=== PATIENT | male | born 1930 | race Caucasian/White ===

== ENCOUNTER 2019-04-25 18:29 | Emergency (ER) | payer OTHER ==
--- OUTSIDE RECORDS SUMMARY | 2019-04-25 18:33 | XMS REPORT ---
:1930 [facility] Address [address] [place] [address] Dr. Sanchez [address] [place] [id number] Care Team Providers Name Role Phone Unavailable Unavailable Unavailable Problems This patient has no known problems. Allergies, Adverse Reactions, Alerts This patient has no known allergies or adverse reactions. Medications This patient has no known medications. Encounters Start End Encounter Admission Attending Care Care Encounter Date/Time Date/Time Type Type Clinicians Facility Department ID 2019-03-18 2019-03-18 Outpatient [facility] [id number] 11:54:00 11:54:00 2019-03-04 2019-03-04 Outpatient [facility] [id number] 09:27:00 09:27:00
--- NOTE | 2019-04-25 19:28 | EDPHYS ---
Physician Documentation [facility] Name: Richi Murphy Age: 89 yrs Sex: Male : 1930 Arrival Date: 04/25/2019 Time: 18:32 Bed 18 Private MD: ED Physician Khadar Pickard HPI: 04/25 19:22 This 89 yrs old Male presents to ER via Ambulatory with complaints of pm1 Abnormal Lab Results. 19:22 Presenting to the ER with complaints of elevated INR. Patient had his lab work drawn pm1 today and was contacted by his GI MD to report to the ER if he is unable to contact his business development specialist for further management today. Patient was recently diagnosed with autoimmune liver problem and started on prednisone 20 mg PO daily. patient also started taking TUMS daily for the calcium. Patient is having lab work drawn every for one month. Today was his second lab draw. Patient without any complaints. No chest pain, shortness of breath, or signs of any bleeding. 19:22 No hematuria. No dark or tarry stool. pm1 Historical: - Allergies: 18:57 Aspirin; ph 18:57 PENICILLINS; ph 18:57 Ibuprofen; ph 18:57 Tetanus Vaccines \\T\\ Toxoid; ph - Home Meds: 18:57 Coumadin Oral [Active]; Prednisone Oral [Active]; levothyroxine oral [Active]; ph - PMHx: 18:57 Atrial Fib; Hypothyroidism; "liver problems - autoimmune"; ph - PSHx: 18:57 Thyroidectomy; ph - Immunization history:: Adult Immunizations unknown. - Social history:: Smoking status: Patient/guardian denies using tobacco. - Ebola Screening: : Patient negative for fever greater than or equal to 101.5 degrees Fahrenheit, and additional compatible Ebola Virus Disease symptoms Patient denies exposure to infectious person. ROS: 19:22 Constitutional: Negative for fever, chills, and weight loss, Eyes: Negative for injury, pm1 pain, redness, and discharge, ENT: Negative for injury, pain, and discharge, Neck: Negative for injury, pain, and swelling, Cardiovascular: Negative for chest pain, palpitations, and edema, Respiratory: Negative for shortness of breath, cough, wheezing, and pleuritic chest pain, Abdomen/GI: Negative for abdominal pain, nausea, vomiting, diarrhea, and constipation, Back: Negative for injury and pain, : Negative for injury, bleeding, discharge, and swelling, MS/Extremity: Negative for injury and deformity, Skin: Negative for injury, rash, and discoloration, Neuro: Negative for headache, weakness, numbness, tingling, and seizure. Exam: 19:22 Constitutional: This is a well developed, well nourished patient who is awake, alert, pm1 and in no acute distress. Head/Face: Normocephalic, atraumatic. Eyes: Pupils equal round and reactive to light, extra-ocular motions intact. Lids and lashes normal. Conjunctiva and sclera are non-icteric and not injected. Cornea within normal limits. Periorbital areas with no swelling, redness, or edema. ENT: Nares patent. No nasal discharge, no septal abnormalities noted. Tympanic membranes are normal and external auditory canals are clear. Oropharynx with no redness, swelling, or masses, exudates, or evidence of obstruction, uvula midline. Mucous membranes moist. Neck: Trachea midline, no thyromegaly or masses palpated, and no cervical lymphadenopathy. Supple, full range of motion without nuchal rigidity, or vertebral point tenderness. No Meningismus. Chest/axilla: Normal chest wall appearance and motion. Nontender with no deformity. No lesions are appreciated. Cardiovascular: Regular rate and rhythm with a normal S1 and S2. No gallops, murmurs, or rubs. Normal PMI, no JVD. No pulse deficits. Respiratory: Lungs have equal breath sounds bilaterally, clear to auscultation and percussion. No rales, rhonchi or wheezes noted. No increased work of breathing, no retractions or nasal flaring. Abdomen/GI: Soft, non-tender, with normal bowel sounds. No distension or tympany. No guarding or rebound. No evidence of tenderness throughout. Back: No spinal tenderness. No costovertebral tenderness. Full range of motion. Skin: Warm, dry with normal turgor. Normal color with no rashes, no lesions, and no evidence of cellulitis. MS/ Extremity: Pulses equal, no cyanosis. Neurovascular intact. Full, normal range of motion. 19:22 Neuro: Orientation: is normal, Motor: is normal, moves all fours, Gait: is steady, at a normal pace, without difficulty. Vital Signs: 18:57 BP 137 / 84; Pulse 66; Resp 18; Temp 98.2; Pulse Ox 99% on R/A; Weight 62.14 kg; Height ph 5 ft. 9 in. (175.26 cm); Pain 0/10; 18:57 Body Mass Index 20.23 (62.14 kg, 175.26 cm) ph MDM: 18:44 Patient medically screened. pm1 19:15 ED course: Reviewed labs drawn today in [facility]. Discussed case with attending MD. pm1 Instructed the patient to hold his Coumadin which he takes in the AM and to contact his business development specialist tomorrow for further management. Patient without any signs of bleeding, pain, shortness of breath, headache. 19:22 Data reviewed: vital signs. Data interpreted: Pulse oximetry: on room air is 99 %. pm1 Interpretation: normal. Counseling: I had a detailed discussion with the patient and/or guardian regarding: the historical points, exam findings, and any diagnostic results supporting the discharge/admit diagnosis, lab results, the need for outpatient follow up, a business development specialist, management of INR and coumadin, to return to the emergency department if symptoms worsen or persist or if there are any questions or concerns that arise at home. Administered Medications: No medications were administered Disposition: 04/26 07:33 Co-signature as Attending Physician, Khadar Pickard MD I agree with the assessment and kdr plan of care. Disposition: 04/25/19 19:27 Discharged to Home. Impression: Abnormal coagulation profile - Supratherapeutic INR without bleeding. - Condition is Stable. - Discharge Instructions: Warfarin Coagulopathy. - Medication Reconciliation Form, Thank You Letter, Antibiotic Education, Prescription Opioid Use form. - Follow up: Emergency Department; When: As needed; Reason: Worsening of condition. Follow up: Private Physician; When: 2 - 3 days; Reason: Recheck today's complaints, Continuance of care, Re-evaluation by your physician. - Problem is new. - Symptoms have improved. Signatures: Khadar Pickard MD MD [facility] Cordelia Galloway RN RN ph Vernon Harris, MANAGER TALENT ACQUISITION MANAGER TALENT ACQUISITION pm1 Brian Pulliam Corrections: (The following items were deleted from the chart) 04/25 19:53 19:27 04/25/2019 19:27 Discharged to Home. Impression: Abnormal coagulation profile - wh Supratherapeutic INR without bleeding. Condition is Stable. Forms are Medication Reconciliation Form, Thank You Letter, Antibiotic Education, Prescription Opioid Use. Follow up: Emergency Department; When: As needed; Reason: Worsening of condition. Follow up: Private Physician; When: 2 - 3 days; Reason: Recheck today's complaints, Continuance of care, Re-evaluation by your physician. Problem is new. Symptoms have improved. pm1
--- NOTE | 2019-04-25 19:28 | ER ---
Nurse's Notes [facility] Name: Richi Murphy Age: 89 yrs Sex: Male : 1930 Arrival Date: 04/25/2019 Time: 18:32 Bed 18 Private MD: Diagnosis: Abnormal coagulation profile-Supratherapeutic INR without bleeding Presentation: 04/25 18:44 Presenting complaint: Patient states: Takes Coumadin for A-fib, had INR checked last ph week and was 2.1, had checked again today and was 6.8, pt denies chest pain or SOB. Transition of care: patient was not received from another setting of care. Onset of symptoms was April 25, 2019. Risk Assessment: Do you want to hurt yourself or someone else? Patient reports no desire to harm self or others. Initial Sepsis Screen: Does the patient meet any 2 criteria? No. Patient's initial sepsis screen is negative. Does the patient have a suspected source of infection? No. Patient's initial sepsis screen is negative. Care prior to arrival: None. 18:44 Method Of Arrival: Ambulatory ph 18:44 Acuity: ANGELA 3 ph Historical: - Allergies: 18:57 Aspirin; ph 18:57 PENICILLINS; ph 18:57 Ibuprofen; ph 18:57 Tetanus Vaccines \\T\\ Toxoid; ph - Home Meds: 18:57 Coumadin Oral [Active]; Prednisone Oral [Active]; levothyroxine oral [Active]; ph - PMHx: 18:57 Atrial Fib; Hypothyroidism; "liver problems - autoimmune"; ph - PSHx: 18:57 Thyroidectomy; ph - Immunization history:: Adult Immunizations unknown. - Social history:: Smoking status: Patient/guardian denies using tobacco. - Ebola Screening: : Patient negative for fever greater than or equal to 101.5 degrees Fahrenheit, and additional compatible Ebola Virus Disease symptoms Patient denies exposure to infectious person. Screenin:15 Abuse screen: Denies threats or abuse. Denies injuries from another. Nutritional wh screening: No deficits noted. Tuberculosis screening: No symptoms or risk factors identified. Fall Risk None identified. Assessment: 19:10 General: Appears in no apparent distress. Behavior is calm, cooperative, appropriate wh for age. Pain: Denies pain. Neuro: Level of Consciousness is awake, alert, obeys commands, Oriented to person, place, time, situation, Appropriate for age. Cardiovascular: Reports Hx of Afib taking coumadin Heart tones present. Respiratory: Airway is patent Respiratory effort is even, unlabored, Respiratory pattern is regular, symmetrical, Breath sounds are clear bilaterally. GI: Abdomen is flat, non-distended. : No signs and/or symptoms were reported regarding the genitourinary system. EENT: No signs and/or symptoms were reported regarding the EENT system. Derm: Skin is intact, is healthy with good turgor, Skin is pink, warm \\T\\ dry. normal. Musculoskeletal: Circulation, motion, and sensation intact. Vital Signs: 18:57 BP 137 / 84; Pulse 66; Resp 18; Temp 98.2; Pulse Ox 99% on R/A; Weight 62.14 kg; Height ph 5 ft. 9 in. (175.26 cm); Pain 0/10; 18:57 Body Mass Index 20.23 (62.14 kg, 175.26 cm) ED Course: 18:32 Patient arrived in ED. rg4 18:42 Vernon Harris NP is PHCP. pm1 18:42 Khadar Pickard MD is Attending Physician. pm1 18:54 Triage completed. 18:57 Arm band placed on Patient placed in an exam room. 19:15 Brian Pulliam is Primary Nurse. 19:15 Patient has correct armband on for positive identification. Bed in low position. Call light in reach. Side rails up X 1. Pulse ox on. NIBP on. 19:51 No provider procedures requiring assistance completed. Patient did not have IV access during this emergency room visit. Administered Medications: No medications were administered Outcome: 19:27 Discharge ordered by . pm1 19:52 Discharged to home ambulatory. 19:52 Condition: stable 19:52 Discharge instructions given to patient, Instructed on discharge instructions, follow up and referral plans. POC Warfarin Coagulopathy Demonstrated understanding of instructions, follow-up care, POC 19:53 Patient left the ED. Signatures: Cordelia Galloway RN RN Vernon Harris NP GOLF SALES MANAGER pm1 Elodia Edward rg4 Brian Pulliam
[2019-04-25 20:01] VITALS: BP 137/84; TEMP 98.2; O2SAT 99
== END 2019-04-25 19:53 | disposition home or self-care (01) ==
LOC: ER 18:29
DX: R79.1 Abnormal coagulation profile (principal); I48.91 Unspecified atrial fibrillation; E03.9 Hypothyroidism, unspecified; Z79.01 Long term (current) use of anticoagulants; Z88.0 Allergy status to penicillin; Z88.6 Allergy status to analgesic agent; Z88.7 Allergy status to serum and vaccine
CPT/HCPCS: 36415; 80048; 80076; 85025; 85610; 99283